=== PATIENT | female | born 1975 | race African-American/Black ===

== ENCOUNTER 2016-07-13 18:48 | Emergency (ER) | payer OTHER ==
[~2016-07-13] VITALS: Ht 154.9 cm; Wt 86.2 kg
[~2016-07-13 18:48] MED LIST: IBUP-1481 PO
--- NOTE | 2016-07-13 18:55 | NUR ---
To bed 7 an aaox4, ambulatory, 40 yo female bibself with c/o intermittent epigastric/rib cage pain for 3 days with cassandra score 7/10, aggravated with turning body to sides. Denies sob, n/v, headache or any other discomfort. VSS. Skin warm and dry to touch. Gowned. Placed on film reader. Awaiting for er md sharif.
--- NOTE | 2016-07-13 21:15 | NUR ---
Patient discharged to home in stable condition. Written and verbal after care instructions given. Patient verbalizes understanding of instruction. Pt is ambulatory with steady gait. No further complaints.
[2016-07-13 21:29] VITALS: BP 132/78
== END 2016-07-13 21:15 | disposition home or self-care (01) ==
LOC: ER 18:52
DX: M94.0 Chondrocostal junction syndrome [Tietze] (principal); F10.20 Alcohol dependence, uncomplicated
CPT/HCPCS: 93005; 99283; A4606; Z7610

== ENCOUNTER 2023-12-04 12:02 | Emergency (ER) | payer MEDICAID, OTHER ==
[~2023-12-04] VITALS: Ht 154.9 cm; Wt 91.6 kg
[~2023-12-04 12:02] MED LIST changes: -IBUP-1481 PO; +IBUP-1953 PO
[2023-12-04 12:30] LABS: BASOPHILS % (AUTO) 0.7 % (0.0-2.0); EOSINOPHILS # (AUTO) 0.1 K/uL (0.0-0.7); EOSINOPHILS % (AUTO) 1.2 % (0.0-6.0); HEMATOCRIT 40 % (33-45); HEMOGLOBIN 13.3 g/dL (11.5-14.8); LYMPHOCYTES # (AUTO) 1.8 K/uL (0.8-4.8); LYMPHOCYTES % (AUTO) 31.2 % (20.0-44.0); MEAN CORPUSCULAR HEMOGLOBIN 28 PG (26.0-33.0); MEAN CORPUSCULAR HGB CONC 33 g/dl (31.0-36.0); MEAN CORPUSCULAR VOLUME 84 fL (82-100); MONOCYTES # (AUTO) 0.6 K/uL (0.1-1.30); MONOCYTES % (AUTO) 10.7 % (2.0-12.0); NEUTROPHILS # (AUTO) 3.3 K/uL (1.8-8.9); NEUTROPHILS % (AUTO) 56.2 % (43.0-81.0); PLATELET COUNT (AUTO) 233 K/uL (150-450); RED CELL DISTRIBUTION WIDTH 14.1 % (11.5-15.0); WHITE BLOOD COUNT (AUTO) 5.8 K/uL (4.3-11.0)
[2023-12-04 12:39] LABS: CALCIUM, SERUM 9.6 mg/dL (8.5-10.1); CARBON DIOXIDE 24 mmol/L (21-32); CHLORIDE 104 mmol/L (98-107); CREATININE 0.9 mg/dL (0.6-1.3); GLUCOSE 91 mg/dL (74-106); POTASSIUM 3.8 mmol/L (3.5-5.1); SODIUM SERUM 140 mmol/L (136-145); UREA NITROGEN, BLOOD 11 mg/dL (7-18)
[2023-12-04 12:43] LABS: BILIRUBIN,DIRECT 0.1 mg/dL (0.0-0.2); BILIRUBIN,TOTAL 0.3 mg/dL (0.2-1.0); TOTAL PROTEIN, SERUM 7.5 g/dL (6.4-8.2)
[2023-12-04 13:07] LABS: APPEARANCE,URINE CLEAR (CLEAR); BILIRUBIN,URINE NEGATIVE (NEGATIVE); BLOOD, URINE 2+ Ery/uL (NEGATIVE); COLOR,URINE YELLOW (YELLOW); KETONES,URINE NEGATIVE (NEGATIVE); LEUKOCYTE ESTERASE ,URINE NEGATIVE (NEGATIVE); NITRITE, URINE NEGATIVE (NEGATIVE); PROTEIN,URINE NEGATIVE (NEGATIVE); UGLUCOSE NEGATIVE (NEGATIVE); UROBILINOGEN,URINE 0.2 EU/dL (0.2)
[2023-12-04] MEDS ORDERED: KETOROLAC TROMETHAMINE 15 MG/ML VIAL ONE (13:26)
[2023-12-04] MEDS: IV NS 0.9% 1,000 ML BAG IV ONE (13:31)
[2023-12-04] MEDS: KETOROLAC TROMETHAMINE 15 MG/ML VIAL IV ONE (13:31)
[2023-12-04 14:00] VITALS: TEMP 98.2
[2023-12-04 14:04] LABS: ADD URINE CULTURE NO; BACTERIA,URINE Rare /HPF (None Seen); RBC,URINE 0-2 /HPF (0-2); SQUAMOUS EPITHELIAL CELL,UR Rare /HPF (None Seen); WBC,URINE 0-2 /HPF (0-3)
[2023-12-04] MEDS ORDERED: IBUP-1955 PO (14:55)
[2023-12-04] MEDS ORDERED: LIDO30AD10 TP (14:55)
[2023-12-04 16:56] VITALS: BP 130/80; O2SAT 99
== END 2023-12-04 16:51 | disposition left against medical advice (07) ==
LOC: ER 12:16
DX: R10.9 Unspecified abdominal pain (principal); Z79.1 Long term (current) use of non-steroidal anti-inflammatories (NSAID); Z60.2 Problems related to living alone
CPT/HCPCS: 99285; 74176; 96374; 71045; 96361; 93005 ×2; 85025; 80048; 83690; 80076; 81001; 36415; 84484 ×2; J7030; J1885

== ENCOUNTER 2024-06-21 09:39 | Emergency (ER) | payer MEDICAID, OTHER ==
[~2024-06-21] VITALS: Ht 154.9 cm; Wt 94.8 kg
[~2024-06-21 09:39] MED LIST changes: +IBUP-1955 PO; +LIDO30AD10 TP
[2024-06-21 09:44] VITALS: BP 131/93; TEMP 98; O2SAT 99
[2024-06-21 10:16] LABS: APPEARANCE,URINE SLIGHTLY CLOUDY (CLEAR); BILIRUBIN,URINE NEGATIVE (NEGATIVE); BLOOD, URINE 2+ Ery/uL (NEGATIVE); COLOR,URINE YELLOW (YELLOW); KETONES,URINE NEGATIVE (NEGATIVE); LEUKOCYTE ESTERASE ,URINE NEGATIVE (NEGATIVE); NITRITE, URINE NEGATIVE (NEGATIVE); PROTEIN,URINE TRACE mg/dl (NEGATIVE); UGLUCOSE NEGATIVE (NEGATIVE); UROBILINOGEN,URINE 0.2 EU/dL (0.2)
[2024-06-21 10:39] LABS: ADD URINE CULTURE NO; BACTERIA,URINE Few /HPF (None Seen); PREGNANCY TEST URINE QUAL NEGATIVE (NEGATIVE); WBC,URINE 0-2 /HPF (0-3)
== END 2024-06-21 11:26 | disposition home or self-care (01) ==
LOC: ER 09:45
DX: B34.9 Viral infection, unspecified (principal); R51.9 Headache, unspecified; R35.0 Frequency of micturition
CPT/HCPCS: 81001; 84703-TC